=== PATIENT | female | born 1955 | race African-American/Black ===

== ENCOUNTER 2017-04-23 15:08 | Inpatient (IN) | payer MEDICAID ==
[~2017-04-23] VITALS: Ht 152.4 cm; Wt 61.2 kg
[~2017-04-23 15:08] MED LIST: ASPI-495 PO; CLOP75TA15 PO; ENOX40DI SQ; METO25TA20 PO
--- NOTE | 2017-04-23 15:45 | NUR ---
NEW IV STARTED ON RAC, 20 G. BLOOD DRAWN AND SENT TO LAB.
[2017-04-23 15:51] LABS: BASOPHILS # (AUTO) 0.1 /CMM (0.0-0.2); BASOPHILS % (AUTO) 1.5 % (0.0-2.0); HEMATOCRIT 38 % (33-45); HEMOGLOBIN 12.6 g/dL (11.5-14.8); LYMPHOCYTES # (AUTO) 1.3 /CMM (0.8-4.8); LYMPHOCYTES % (AUTO) 17.4 % (20.0-44.0); MEAN CORPUSCULAR HEMOGLOBIN 27 PG (26.0-33.0); MEAN CORPUSCULAR HGB CONC 33 g/dl (31.0-36.0); MEAN CORPUSCULAR VOLUME 80 fL (82-100); MONOCYTES # (AUTO) 0.4 /CMM (0.1-1.30); MONOCYTES % (AUTO) 5.5 % (2.0-12.0); NEUTROPHILS # (AUTO) 5.4 /CMM (1.8-8.9); NEUTROPHILS % (AUTO) 75.6 % (43.0-81.0); PLATELET COUNT (AUTO) 195 /CMM (150-450); RDW COEFFICIENT OF VARIATION 13.7 (11.5-15.0); RED BLOOD CELL COUNT(AUTO) 4.72 MIL/uL (4.0-5.2); WHITE BLOOD COUNT (AUTO) 7.3 K/uL (4.3-11.0)
--- NOTE | 2017-04-23 15:55 | NUR ---
PATIENT TAKEN TO CT VIA STRETCHER.
[2017-04-23] MEDS ORDERED: IV NS 0.9% 1,000 ML BAG IV ONE (16:00)
[2017-04-23 16:06] LABS: INR 0.93 (0.85-1.15)
[2017-04-23 16:08] LABS: ALANINE AMINOTRANSFERASE 40 U/L (12-78); ALBUMIN 3.5 g/dL (3.4-5.0); ALKALINE PHOSPHATASE 243 U/L (46-116); ASPARTATE AMINOTRANSFERASE 39 U/L (15-37); BILIRUBIN,DIRECT 0.1 mg/dL (0.0-0.2); BILIRUBIN,TOTAL 0.3 mg/dL (0.2-1.0); CALCIUM, SERUM 9.1 mg/dL (8.5-10.1); CARBON DIOXIDE 22 mmol/L (21-32); CHLORIDE 100 mmol/L (98-107); CREATININE 2.2 mg/dL (0.6-1.3); GLUCOSE 186 mg/dL (74-106); POTASSIUM 4.5 mmol/L (3.5-5.1); SODIUM SERUM 134 mmol/L (136-145); TOTAL PROTEIN, SERUM 8.4 g/dL (6.4-8.2); UREA NITROGEN, BLOOD 30 mg/dL (7-18)
[2017-04-23 16:10] LABS: TROPONIN I < 0.017 ng/mL (0.00-0.056)
--- NOTE | 2017-04-23 16:25 | NUR ---
PATIENT RETURNED FROM CT IN STABLE CONDITION.
[2017-04-23] MEDS ORDERED: HYDROMORPHONE INJ 0.5 MG/0.5 ML SYRINGE ONE (16:57)
[2017-04-23] MEDS ORDERED: HYDROMORPHONE 1 MG/1 ML DISP.SYRIN IV ONE (17:00)
[2017-04-23] MEDS ORDERED: HYDR-548 PO (17:04)
[2017-04-23] MEDS ORDERED: NAPR500T4 PO (17:04)
[2017-04-23] MEDS ORDERED: ESTR1.25 PO (17:04)
[2017-04-23] MEDS ORDERED: SIMV20TA6 PO (17:04)
[2017-04-23] MEDS ORDERED: LABE100T PO (17:04)
[2017-04-23] MEDS ORDERED: GLIM2TAB2 PO (17:04)
[2017-04-23] MEDS ORDERED: PIOG30TA10 PO (17:04)
[2017-04-23] MEDS ORDERED: METF500T4 PO (17:04)
[2017-04-23] MEDS ORDERED: HUM10VIA SQ (17:04)
[2017-04-23] MEDS ORDERED: PANT20TA3 PO (17:04)
[2017-04-23] MEDS ORDERED: CLOP75TA15 PO (17:08)
--- NOTE | 2017-04-23 17:59 | NUR ---
CALLED NURSING SUP. FOR TELE BED
--- NOTE | 2017-04-23 18:15 | NUR ---
TELE 109
[2017-04-23 18:20] LABS: APPEARANCE,URINE Clear (CLEAR); BILIRUBIN,URINE Negative (NEGATIVE); BLOOD, URINE Small Ery/uL (NEGATIVE); COLOR,URINE Yellow (YELLOW); KETONES,URINE Negative (NEGATIVE); LEUKOCYTE ESTERASE ,URINE Negative (NEGATIVE); NITRITE, URINE Negative (NEGATIVE); PROTEIN,URINE >=300 mg/dl (NEGATIVE); UGLUCOSE Negative (NEGATIVE)
--- NOTE | 2017-04-23 18:38 | NUR ---
REPORT GIVEN TO AMY CLARK FOR GUANAKO UPON ADMISSION.
--- NOTE | 2017-04-23 18:42 | NUR ---
REPORT GIVEN TO KULDEEP CLARK FOR GUANAKO
[2017-04-23] MEDS ORDERED: IV NS 0.9% 1,000 ML IV PRN (18:58)
[2017-04-23] MEDS ORDERED: MAGNESIUM HYDROXIDE 30 ML UDC PO PRN (19:00)
[2017-04-23] MEDS ORDERED: ONDANSETRON HCL/PF 4 MG/2 ML VIAL IVP PRN (19:00)
[2017-04-23] MEDS ORDERED: ACETAMINOPHEN 325 MG TABLET PO PRN (19:00)
[2017-04-23] MEDS ORDERED: MAG HYDROX/AL HYDROX/SIMETH 30 ML UDC PO PRN (19:00)
[2017-04-23] MEDS ORDERED: HYDROCODONE/APAP 5/325MG 1 EACH TABLET PO PRN (19:00)
[2017-04-23 19:13] LABS: BACTERIA,URINE Few /HPF (None Seen); SQUAMOUS EPITHELIAL CELL,UR Few /HPF (None Seen); WBC,URINE 0-2 /HPF (0-3)
[2017-04-23 19:14] LABS: FINE GRANULAR CASTS,URINE Few /LPF (None Seen); HYALINE CASTS, URINE Few /LPF (None Seen); MUCUS,URINE Few /LPF (None Seen)
[2017-04-23] MEDS ORDERED: DEXTROSE 50%-WATER 50 ML DISP.SYRIN IV PRN (19:30)
[2017-04-23 20:00] VITALS: BP 172/75
--- NOTE | 2017-04-23 20:00 | NUR ---
RN NOTES RECEIVED PATIENT IN BED WITH NO DISTRESS NOTED. ON ROOM AIR WITH BREATHING EVEN AND UNLABORED. COMPLAINT OF BACK AND RIGHT SHOULDER PAIN. ALERT AND ORIENTED WITH CONFUSION. SKIN ASSESSMENT DONE, NO SKIN ISSUES NOTED. NEEDS ATTENDED, KEPT CLEAN AND DRY.
[2017-04-23] MEDS: BLOOD SUGAR DIAGNOSTIC 1 EACH STRIP IN SCH (21:36)
[2017-04-23] MEDS: INSULIN REGULAR, HUMAN 100 UNIT/ML 3 ML VIAL SQ PRN (21:36)
[2017-04-23] MEDS: HYDROCODONE/APAP 10/325MG 1 EA TABLET PO PRN (21:38)
[2017-04-23] MEDS: ZOLPIDEM TARTRATE 5 MG TABLET PO PRN (22:11)
[2017-04-24] VITALS: BP_SYST 139; BP_DIAS 70; BP_DIAS 74
[2017-04-24 04:00] VITALS: BP 140/77
[2017-04-24 05:48] LABS: BASOPHILS % (AUTO) 0.3 % (0.0-2.0); HEMATOCRIT 34 % (33-45); HEMOGLOBIN 11.6 g/dL (11.5-14.8); LYMPHOCYTES # (AUTO) 2.1 /CMM (0.8-4.8); LYMPHOCYTES % (AUTO) 48.2 % (20.0-44.0); MEAN CORPUSCULAR HEMOGLOBIN 27 PG (26.0-33.0); MEAN CORPUSCULAR HGB CONC 34 g/dl (31.0-36.0); MEAN CORPUSCULAR VOLUME 80 fL (82-100); MONOCYTES # (AUTO) 0.3 /CMM (0.1-1.30); MONOCYTES % (AUTO) 7.6 % (2.0-12.0); NEUTROPHILS # (AUTO) 1.9 /CMM (1.8-8.9); NEUTROPHILS % (AUTO) 43.9 % (43.0-81.0); PLATELET COUNT (AUTO) 167 /CMM (150-450); RDW COEFFICIENT OF VARIATION 14.8 (11.5-15.0); RED BLOOD CELL COUNT(AUTO) 4.29 MIL/uL (4.0-5.2); WHITE BLOOD COUNT (AUTO) 4.3 K/uL (4.3-11.0)
[2017-04-24 06:07] LABS: CALCIUM, SERUM 8.2 mg/dL (8.5-10.1); MAGNESIUM 1.8 mg/dL (1.8-2.4); PHOSPHORUS 3.8 mg/dL (2.5-4.9)
[2017-04-24 06:13] LABS: THYROID STIMULATING HORMONE 0.893 uIU/mL (0.358-3.74)
--- NOTE | 2017-04-24 07:30 | NUR ---
FIRST AID TRAINER OPENING NOTES RECEIVED PATIENT IN STABLE CONDITION. PATIENT IS RESTING IN BED. IN NO APPARENT DISTRESS. BEDSIDE RAILS ARE UPX2. BED IS LOCKED AND LOWERED. CALL LIGHT IS WITHIN REACH. WILL CONTINUE TO MONITOR.
[2017-04-24] MEDS: BLOOD SUGAR DIAGNOSTIC 1 EACH STRIP IN SCH ×4 (07:48→21:30)
[2017-04-24] MEDS: PANTOPRAZOLE 40 MG TABLET.DR PO SCH (07:49)
[2017-04-24 08:00] VITALS: BP 168/81
[2017-04-24] MEDS: CLOPIDOGREL BISULFATE 75 MG TABLET PO SCH (08:32)
[2017-04-24] MEDS: LABETALOL HCL (100MG) 100 MG TABLET PO SCH ×2 (08:33→17:02)
[2017-04-24] MEDS: ASPIRIN EC 81 MG TABLET.DR PO SCH (08:33)
[2017-04-24] MEDS: ESTROGENS,CONJUGATED 0.625 MG TABLET PO SCH (08:34)
[2017-04-24 10:36] VITALS: BP_SYST 133; BP_SYST 146; BP_SYST 162; BP_DIAS 74; BP_DIAS 81; BP_DIAS 95
[2017-04-24] MEDS: INSULIN REGULAR, HUMAN 100 UNIT/ML 3 ML VIAL SQ PRN ×3 (12:30→21:31)
[2017-04-24] MEDS: HYDROCODONE/APAP 10/325MG 1 EA TABLET PO PRN ×2 (13:35→18:01)
[2017-04-24 14:34] LABS: CREATININE, URINE 162.1 MG/DL (30.0-125.0); URINE TOTAL PROTEIN 156.5 mg/dL (0-11.9)
[2017-04-24 14:45] LABS: APPEARANCE,URINE CLEAR (CLEAR); BILIRUBIN,URINE NEGATIVE (NEGATIVE); BLOOD, URINE NEGATIVE Ery/uL (NEGATIVE); COLOR,URINE YELLOW (YELLOW); KETONES,URINE NEGATIVE (NEGATIVE); LEUKOCYTE ESTERASE ,URINE TRACE (NEGATIVE); NITRITE, URINE NEGATIVE (NEGATIVE); PH,URINE 5.5 (5.0-8.0); PROTEIN,URINE 2+ mg/dl (NEGATIVE); UGLUCOSE NEGATIVE (NEGATIVE); UROBILINOGEN,URINE 0.2 EU/dL (0.2)
[2017-04-24 14:58] LABS: BACTERIA,URINE Few /HPF (None Seen); SQUAMOUS EPITHELIAL CELL,UR Moderate /HPF (None Seen)
[2017-04-24 15:06] LABS: EOSINOPHIL,URINE Rare
[2017-04-24] MEDS: GUAIFENESIN/CODEINE 10 ML UDC PO PRN (15:42)
[2017-04-24 16:00] VITALS: BP 125/69
[2017-04-24] MEDS: SIMVASTATIN 20 MG TABLET PO SCH (17:01)
--- NOTE | 2017-04-24 18:32 | NUR ---
MS RN CLOSING NOTES PATIENT IS RESTING IN BED. IN NO APPARENT DISTRESS. ALL NEEDS WERE MET. CALL LIGHT IS WITHIN REACH. BEDSIDE RAILS ARE UP X2. BED IS LOCKED AND LOWERED. IV LINE IS INTACT AND PATENT. WILL ENDORSE CARE TO QUALITATIVE FIELD COORDINATOR NURSE FOR GUANAKO.
--- NOTE | 2017-04-24 20:00 | NUR ---
RN NOTES RECEIVED PATIENT AWAKE IN BED WITH NO DISTRESS NOTED. BREATHING EVEN AND UNLABORED. NO COMPLAINT OF PAIN OR DISCOMFORT. ALERT AND ORIENTED WITH EPISODES OF CONFUSION. ON ROOM AIR TOLERATING WELL. NEEDS ATTENDED. CALL LIGHT PLACED WITHIN EASY REACH. KEPT CLEAN AND DRY.
[2017-04-24] MEDS: IV NS 0.9% 1,000 ML IV PRN (21:28)
[2017-04-25] MEDS: GUAIFENESIN/CODEINE 10 ML UDC PO PRN ×2 (03:26→10:40)
[2017-04-25 04:00] VITALS: BP 150/72
--- NOTE | 2017-04-25 06:21 | NUR ---
RN CLOSING NOTES PATIENT IN BED RESTING COMFORTABLY WITN NO DISTRESS, BREATHING EVEN AND UNLABORED. NOTED WITH COUGH, ROBITUSSIN GIVEN. NO COMPLAINT OF ANY PAIN. NO SIGNIFICANT CHANGE OF CONDITION. KEPT CLEAN AND DRY. WILL ENDORSE TO AM SHIFT FOR CONTINUITY OF CARE.
[2017-04-25 06:35] LABS: ALBUMIN 2.8 g/dL (3.4-5.0); BILIRUBIN,TOTAL 0.2 mg/dL (0.2-1.0); CALCIUM, SERUM 8.2 mg/dL (8.5-10.1); CREATININE 1.9 mg/dL (0.6-1.3); MAGNESIUM 1.6 mg/dL (1.8-2.4); PHOSPHORUS 3.5 mg/dL (2.5-4.9); POTASSIUM 4.3 mmol/L (3.5-5.1)
[2017-04-25 06:39] LABS: BASOPHILS % (AUTO) 0.6 % (0.0-2.0); EOSINOPHILS % (AUTO) 0.4 % (0.0-6.0); HEMATOCRIT 33 % (33-45); HEMOGLOBIN 10.8 g/dL (11.5-14.8); LYMPHOCYTES # (AUTO) 2.9 /CMM (0.8-4.8); LYMPHOCYTES % (AUTO) 59.3 % (20.0-44.0); MEAN CORPUSCULAR HEMOGLOBIN 27 PG (26.0-33.0); MEAN CORPUSCULAR HGB CONC 33 g/dl (31.0-36.0); MEAN CORPUSCULAR VOLUME 81 fL (82-100); MONOCYTES # (AUTO) 0.4 /CMM (0.1-1.30); NEUTROPHILS # (AUTO) 1.5 /CMM (1.8-8.9); NEUTROPHILS % (AUTO) 30.7 % (43.0-81.0); PLATELET COUNT (AUTO) 150 /CMM (150-450); RDW COEFFICIENT OF VARIATION 14.9 (11.5-15.0); RED BLOOD CELL COUNT(AUTO) 4.03 MIL/uL (4.0-5.2); WHITE BLOOD COUNT (AUTO) 4.8 K/uL (4.3-11.0)
[2017-04-25] MEDS: BLOOD SUGAR DIAGNOSTIC 1 EACH STRIP IN SCH ×4 (06:47→21:14)
[2017-04-25] MEDS: INSULIN REGULAR, HUMAN 100 UNIT/ML 3 ML VIAL SQ PRN ×3 (06:47→21:16)
--- NOTE | 2017-04-25 07:37 | NUR ---
MS/RN NOTES RECEIVED PATIENT RESTING IN BED COMFORTABLY IN NO APPARENT DISTRESS, BREATHING EVEN AND UNLABORED, ON ROOM AIR SAT ABOVE 91%. DENIES PAIN OR DISCOMFORT AT THIS TIME. ALERT AND ORIENTED X2-3 WITH PERIODS OF CONFUSION AND FORGETFULNESS. RISK FOR FALL, SAFETY PRECAUTIONS RENDERED, BED ALARM ON. IV TO RIGHT AC G20 NS AT 50CC/HR. WILL CONTINUE TO MONITOR PATIENT ACCORDINGLY.
[2017-04-25 08:00] VITALS: BP 101/70
[2017-04-25 08:06] VITALS: BP 109/70
[2017-04-25] MEDS ORDERED: Magnesium 1GM/D5W 100ML PREMIX 100 ML IV SCH (08:30)
[2017-04-25] MEDS: ASPIRIN EC 81 MG TABLET.DR PO SCH (08:39)
[2017-04-25] MEDS: CLOPIDOGREL BISULFATE 75 MG TABLET PO SCH (08:39)
[2017-04-25] MEDS: PANTOPRAZOLE 40 MG TABLET.DR PO SCH (08:39)
[2017-04-25] MEDS: HYDROCODONE/APAP 10/325MG 1 EA TABLET PO PRN (08:41)
[2017-04-25] MEDS: LABETALOL HCL (100MG) 100 MG TABLET PO SCH ×3 (08:43→17:25)
--- NOTE | 2017-04-25 08:50 | NUR ---
MS/RN NOTES PATIENT COMPLAINING OF 8/10 BACK AND CHEST PAIN. ADMINISTERED NORCO 10-325MG 1 TAB BY MOUTH ORDERED. WILL MONITOR PATIENT FOR EFFECTIVENESS AND RELIEF.
[2017-04-25] MEDS: ESTROGENS,CONJUGATED 0.625 MG TABLET PO SCH (09:35)
--- NOTE | 2017-04-25 11:30 | NUR ---
MS/RN NOTES PATIENT SEEN BY PT FOR EVALUATION AND TREATMENT.
[2017-04-25 16:00] VITALS: BP 110/75
[2017-04-25] MEDS: SIMVASTATIN 20 MG TABLET PO SCH (17:25)
--- NOTE | 2017-04-25 18:27 | NUR ---
MS/RN NOTES PATIENT RESTING IN BED COMFORTABLY, NO S/S OF DISTRESS, DISCOMFORT NOTED. ALL DUE MEDICATIONS GIVEN, ALL NEEDS MET AND ATTENDED, ALL DUE MEDICATIONS GIVEN, PATIENT KEPT CLEAN AND COMFORTABLE. GENTLE IV FLUIDS INFUSING TO RIGHT FA 22G INTACT AND PATENT. SAFETY MEASURES RENDERED, DISCUSSED PLAN OF CARE/TREATMENT. PATIENT REMAINED STABLE THROUGHOUT THE SHIFT, VITAL SIGNS WITHIN NORMAL LIMITS. WILL ENDORSE CARE TO ACCOUNTING TUTOR NURSE FOR GUANAKO
--- NOTE | 2017-04-25 19:05 | NUR ---
MS RN OPENING NOTES: RECEIVED PT IN BED AND IS ASLEEP AT THIS TIME. PT EASILY AROUSABLE TO NAME AND TOUCH. PT IS A/OX2-3. PT HAS R AC #20G AND IS PATENT AND INTACT. PT ALSO HAS R FOREARM #22G AND IS ALSO PATENT AND INTACT. PT BEING INFUSED WITH NS AT 50CC/HR. CALL LIGHT WITHIN PT'S REACH. BED KEPT IN LOW, LOCKED POSITION, AND SIDE RAILS X 2UP . BED ALARM ACTIVATED. WILL CONTINUE TO MONITOR PT.
[2017-04-25 20:00] VITALS: BP 133/75
--- NOTE | 2017-04-25 21:16 | NUR ---
MS RN NOTES: BLOOD SUGAR WAS 127. NO INSULIN WAS ADMINISTERED. WILL CONTINUE TO MONITOR PT.
[2017-04-26] VITALS (7 sets, daily range): BP systolic 95–158; BP diastolic 55–86
[2017-04-26] MEDS: IV NS 0.9% 1,000 ML IV PRN ×2 (02:49→21:29)
--- NOTE | 2017-04-26 04:10 | NUR ---
MS CLARK OPENING NOTES: RECEIVED PT IN BED AND IS ASLEEP AT THIS TIME. PT EASILY AROUSABLE TO NAME AND TOUCH. PT IS A/OX2-3. PT HAS R AC #20G AND IS PATENT AND INTACT. PT ALSO HAS R FOREARM #22G AND IS ALSO PATENT AND INTACT. PT BEING INFUSED WITH NS AT 50CC/HR. CALL LIGHT WITHIN PT'S REACH. BED KEPT IN LOW, LOCKED POSITION, AND SIDE RAILS X 2UP . BED ALARM ACTIVATED. WILL CONTINUE TO MONITOR PT. Addendum: 04/26/17 at 0412 by KACIE CHÁVEZ RN IGNORE THIS MESSAGE
--- NOTE | 2017-04-26 06:32 | NUR ---
MS RN CLOSING NOTES: ALL NEEDS WERE ATTENDED AND ANTICIPATED FOR. PT ASLEEP AT THIS TIME IN BED. PT EASILY AROUSABLE TO NAME AND TOUCH. PT IS A/OX2-3. PT HAS R AC #20G AND IS PATENT AND INTACT. PT ALSO HAS R FOREARM #22G AND IS ALSO PATENT AND INTACT. PT BEING INFUSED WITH NS AT 50CC/HR. CALL LIGHT WITHIN PT'S REACH. BED KEPT IN LOW, LOCKED POSITION, AND SIDE RAILS X 2UP . BED ALARM ACTIVATED. WILL ENDORSE TO AM NURSE FOR GUANAKO.
--- NOTE | 2017-04-26 07:30 | NUR ---
RECEIVED IN BED, ASLEEP. NO DISTRESS NOTED. WILL CONTINUE TO MONITOR.
[2017-04-26] MEDS: BLOOD SUGAR DIAGNOSTIC 1 EACH STRIP IN SCH ×4 (08:01→21:26)
[2017-04-26] MEDS: INSULIN REGULAR, HUMAN 100 UNIT/ML 3 ML VIAL SQ PRN ×3 (08:03→17:45)
[2017-04-26] MEDS: PANTOPRAZOLE 40 MG TABLET.DR PO SCH (08:03)
[2017-04-26] MEDS: CLOPIDOGREL BISULFATE 75 MG TABLET PO SCH (08:03)
[2017-04-26] MEDS: ESTROGENS,CONJUGATED 0.625 MG TABLET PO SCH (08:04)
[2017-04-26] MEDS: LABETALOL HCL (100MG) 100 MG TABLET PO SCH (08:04)
[2017-04-26] MEDS: ASPIRIN EC 81 MG TABLET.DR PO SCH (08:04)
--- NOTE | 2017-04-26 12:30 | NUR ---
TOLERATING CHOPPED MECHANICAL SOFT DIET. ORTHOSTATIC BP DONE. PT C/O BEING LIGHT HEADED WHEN CHANGING POSITION. WILL CONT TO MONITOR.
[2017-04-26] MEDS ORDERED: hydrALAZINE HCL 25 MG TABLET PO PRN (15:00)
[2017-04-26] MEDS: SIMVASTATIN 20 MG TABLET PO SCH (17:45)
--- NOTE | 2017-04-26 19:42 | NUR ---
NO DISTRESS NOTED. FAMILY AT BEDSIDE. BLOOD SUGARS MONITORED. INCONTINENCE CARE DONE. BED LOW AND LOCKED. CALL LIGHT WITHIN REACHED. WILL CONT TO MONITOR.
--- NOTE | 2017-04-26 19:45 | NUR ---
MS RN INITIAL NOTES PT IS IN BED AWAKE AND ALERT. FAMILY AT BEDSIDE. FAMILY BROUGHT PT HERNÁN HARDY AND PT IS TOLERATING WELL. BREATHING EVENLY AND UNLABORED ON RA. NO SIGNS OF SOB OR DISTRESS. BED IS IN LOW AND LOCKED POSITION, CALL LIGHT WITHIN REACH. WILL CONTINUE TO MONITOR PT.
[2017-04-27] MEDS ORDERED: CLONIDINE HCL 0.1 MG TABLET PO ONE (02:00)
[2017-04-27] MEDS: ZOLPIDEM TARTRATE 5 MG TABLET PO PRN (02:19)
[2017-04-27 04:00] VITALS: BP_SYST 152; BP_SYST 165; BP_SYST 171; BP_DIAS 81; BP_DIAS 82
[2017-04-27] MEDS: BLOOD SUGAR DIAGNOSTIC 1 EACH STRIP IN SCH ×3 (05:49→17:23)
--- NOTE | 2017-04-27 06:49 | NUR ---
MS RN CLOSING NOTES PT IS IN BED RESTING. BREATHING EVENLY AND UNLABORED ON RA. NO SIGNS OF SOB OR DISTRESS. IV FLUIDS HELD DUE TO INCREASED BP, ORTHOSTATIC BP WAS TAKEN AND RECORDED. BED IS IN LOW AND LOCKED POSITION, CALL LIGHT WITHIN REACH. WILL ENDORSE TO DAYSHIFT
[2017-04-27 06:56] LABS: BASOPHILS % (AUTO) 0.6 % (0.0-2.0); EOSINOPHILS % (AUTO) 0.6 % (0.0-6.0); HEMATOCRIT 31 % (33-45); HEMOGLOBIN 10.4 g/dL (11.5-14.8); LYMPHOCYTES % (AUTO) 65.9 % (20.0-44.0); MEAN CORPUSCULAR HEMOGLOBIN 27 PG (26.0-33.0); MEAN CORPUSCULAR HGB CONC 34 g/dl (31.0-36.0); MEAN CORPUSCULAR VOLUME 81 fL (82-100); MONOCYTES # (AUTO) 0.5 /CMM (0.1-1.30); MONOCYTES % (AUTO) 8.1 % (2.0-12.0); NEUTROPHILS # (AUTO) 1.5 /CMM (1.8-8.9); NEUTROPHILS % (AUTO) 24.8 % (43.0-81.0); PLATELET COUNT (AUTO) 143 /CMM (150-450); RED BLOOD CELL COUNT(AUTO) 3.86 MIL/uL (4.0-5.2)
[2017-04-27 07:10] LABS: CALCIUM, SERUM 7.9 mg/dL (8.5-10.1); CREATININE 1.3 mg/dL (0.6-1.3); MAGNESIUM 1.7 mg/dL (1.8-2.4); PHOSPHORUS 2.9 mg/dL (2.5-4.9)
[2017-04-27 08:00] VITALS: BP 151/71
[2017-04-27] MEDS ORDERED: AMLODIPINE BESYLATE 10 MG TABLET PO SCH (09:00)
[2017-04-27] MEDS: ESTROGENS,CONJUGATED 0.625 MG TABLET PO SCH (09:19)
[2017-04-27] MEDS: ASPIRIN EC 81 MG TABLET.DR PO SCH (09:19)
[2017-04-27] MEDS: CLOPIDOGREL BISULFATE 75 MG TABLET PO SCH (09:19)
[2017-04-27] MEDS: PANTOPRAZOLE 40 MG TABLET.DR PO SCH (09:19)
[2017-04-27] MEDS: Magnesium 1GM/D5W 100ML PREMIX 100 ML IV SCH ×2 (12:10→13:30)
[2017-04-27] MEDS ORDERED: AMLO10TA2 PO (15:33)
[2017-04-27 16:00] VITALS: BP 131/77
--- NOTE | 2017-04-27 17:50 | NUR ---
MG IV REPLACEMENT DONE.O2 SAT RM. AIR 95%.DC INSTRUCTIONS GIVEN TO FAMILY ALONG WITH RX.HEP LOCKS OUT. ESCORTED TO LOBBY BY SPORTS TRAINER AND FAMILY.
[2017-04-27] MEDS: SIMVASTATIN 20 MG TABLET PO SCH (18:00)
[2017-04-27] MEDS: INSULIN REGULAR, HUMAN 100 UNIT/ML 3 ML VIAL SQ PRN (18:21)
== END 2017-04-27 18:50 | disposition home health service (06) | DRG 48 ==
LOC: ER 15:11 → TELE1 18:32 → MEDSG1 04-24 10:24
PROVIDERS: ADMIT Nurse Practitioner Acute Care; ATTEND Nurse Practitioner Acute Care
DX: G90.8 Other disorders of autonomic nervous system (principal); N17.0 Acute kidney failure with tubular necrosis; E11.21 Type 2 diabetes mellitus with diabetic nephropathy; M32.9 Systemic lupus erythematosus, unspecified; E11.22 Type 2 diabetes mellitus with diabetic chronic kidney disease; I25.10 Atherosclerotic heart disease of native coronary artery without angina pectoris; E11.9 Type 2 diabetes mellitus without complications; E78.5 Hyperlipidemia, unspecified; I70.0 Atherosclerosis of aorta; Z86.73 Personal history of transient ischemic attack (TIA), and cerebral infarction without residual deficits; Z79.82 Long term (current) use of aspirin; Z79.4 Long term (current) use of insulin; W18.2XXA Fall in (into) shower or empty bathtub, initial encounter; J44.9 Chronic obstructive pulmonary disease, unspecified; Y92.002 Bathroom of unspecified non-institutional (private) residence as the place of occurrence of the external cause; G89.4 Chronic pain syndrome; Z79.899 Other long term (current) drug therapy; Z79.84 Long term (current) use of oral hypoglycemic drugs; I12.9 Hypertensive chronic kidney disease with stage 1 through stage 4 chronic kidney disease, or unspecified chronic kidney disease; N18.9 Chronic kidney disease, unspecified; S13.9XXA Sprain of joints and ligaments of unspecified parts of neck, initial encounter; S13.4XXA Sprain of ligaments of cervical spine, initial encounter; Z72.0 Tobacco use; M19.011 Primary osteoarthritis, right shoulder; M40.204 Unspecified kyphosis, thoracic region; M47.814 Spondylosis without myelopathy or radiculopathy, thoracic region; M77.9 Enthesopathy, unspecified
CPT/HCPCS: 36415; 70450-TC; 71045-TC; 72125-TC; 72128-TC; 72170-TC; 73030-TC; 76770-TC; 80048-TC; 80053-TC; 80061-TC; 80076-TC; 80305; 81000-TC; 82570-TC; 82746; 82962-TC; 83540-TC; 83735-TC; 84100-TC; 84155-TC; 84300-TC; 84443-TC; 84484-TC; 85025-TC; 85730-TC; 87081-TC; 87086-TC; 92521; 93307-TC; 97116-TC; 97530-TC; A4606; G0480; J1815; J3475; J7030; Z7610

== ENCOUNTER 2017-08-30 12:02 | Emergency (ER) | payer MEDICAID ==
[~2017-08-30] VITALS: Ht 152.4 cm; Wt 66.7 kg
[~2017-08-30 12:02] MED LIST changes: +AMLO10TA6 PO; -ENOX40DI SQ; +ESTR1.25 PO; +GLIM2TAB2 PO; +HUM10VIA SQ; +HYDR-548 PO; +METF-440 PO; -METO25TA20 PO; +PANT20TA3 PO; +PIOG30TA10 PO; +SIMV20TA6 PO
[2017-08-30] MEDS ORDERED: IBUPROFEN 600 MG TABLET PO ONE ×2 (13:00)
--- NOTE | 2017-08-30 13:24 | NUR ---
Patient discharged to home in stable condition. Written and verbal after care instructions given. Patient verbalizes understanding of instruction.
[2017-08-30 13:28] VITALS: BP 148/80
== END 2017-08-30 13:30 | disposition home or self-care (01) ==
LOC: ER 12:03
DX: L84 Corns and callosities (principal); J44.9 Chronic obstructive pulmonary disease, unspecified; G89.29 Other chronic pain; I25.10 Atherosclerotic heart disease of native coronary artery without angina pectoris; E11.9 Type 2 diabetes mellitus without complications; I10 Essential (primary) hypertension; F17.210 Nicotine dependence, cigarettes, uncomplicated; F10.10 Alcohol abuse, uncomplicated; Z86.73 Personal history of transient ischemic attack (TIA), and cerebral infarction without residual deficits; Z79.82 Long term (current) use of aspirin; Z79.4 Long term (current) use of insulin
CPT/HCPCS: 73630-TC; A4606; Z7610

== ENCOUNTER 2017-09-04 13:54 | Inpatient (IN) | payer MEDICAID, OTHER ==
[~2017-09-04] VITALS: Ht 165.1 cm; Wt 63.5 kg
--- NOTE | 2017-09-04 14:00 | NUR ---
BB FAMILY: NAUSEA, VOMITING, WEAKNESS, DEHYDRATION
[2017-09-04] MEDS ORDERED: IV NS 0.9% 1,000 ML BAG IV ONE (15:00)
[2017-09-04] MEDS ORDERED: MORPHINE SULFATE INJ 2 MG/ML DISP.SYRIN IV ONE ×2 (15:00→17:30)
[2017-09-04] MEDS ORDERED: ONDANSETRON HCL/PF 4 MG/2 ML VIAL IVP ONE (15:00)
[2017-09-04] MEDS ORDERED: ONDANSETRON HCL/PF 4 MG/2 ML VIAL ONE (15:06)
[2017-09-04] MEDS ORDERED: MORPHINE SULFATE INJ 4 MG/ML DISP.SYRIN ONE ×2 (15:06→17:29)
[2017-09-04 15:21] LABS: HEMATOCRIT 39 % (33-45); HEMOGLOBIN 12.5 g/dL (11.5-14.8); LYMPHOCYTES % (AUTO) 6.5 % (20.0-44.0); MEAN CORPUSCULAR HGB CONC 32 g/dl (31.0-36.0); MEAN CORPUSCULAR VOLUME 82 fL (82-100); MONOCYTES # (AUTO) 0.3 /CMM (0.1-1.30); MONOCYTES % (AUTO) 1.8 % (2.0-12.0); NEUTROPHILS # (AUTO) 14.5 /CMM (1.8-8.9); NEUTROPHILS % (AUTO) 91.7 % (43.0-81.0); PLATELET COUNT (AUTO) 276 /CMM (150-450); RDW COEFFICIENT OF VARIATION 15.1 (11.5-15.0); RED BLOOD CELL COUNT(AUTO) 4.73 MIL/uL (4.0-5.2); WHITE BLOOD COUNT (AUTO) 15.9 K/uL (4.3-11.0)
[2017-09-04 15:32] LABS: CALCIUM, SERUM 9.4 mg/dL (8.5-10.1); CARBON DIOXIDE 29 mmol/L (21-32); CHLORIDE 102 mmol/L (98-107); CREATININE 2.2 mg/dL (0.6-1.3); GLUCOSE 222 mg/dL (74-106); POTASSIUM 4.5 mmol/L (3.5-5.1); SODIUM SERUM 141 mmol/L (136-145); UREA NITROGEN, BLOOD 41 mg/dL (7-18)
[2017-09-04 15:40] LABS: TROPONIN I < 0.017 ng/mL (0.00-0.056)
[2017-09-04 15:44] LABS: ALANINE AMINOTRANSFERASE 341 U/L (12-78); ALBUMIN 3.8 g/dL (3.4-5.0); ALKALINE PHOSPHATASE 307 U/L (46-116); ASPARTATE AMINOTRANSFERASE 393 U/L (15-37); BILIRUBIN,DIRECT 1.7 mg/dL (0.0-0.2); BILIRUBIN,TOTAL 2.4 mg/dL (0.2-1.0); LIPASE 262 U/L (73-393); TOTAL PROTEIN, SERUM 9.3 g/dL (6.4-8.2)
[2017-09-04 15:47] LABS: INR 0.93 (0.87-1.13)
--- NOTE | 2017-09-04 15:54 | NUR ---
UNABLE TO PROVIDE URINE SAMPLE IN AND OUT FOR NO URINE
[2017-09-04] MEDS ORDERED: IBUP-1955 PO (16:01)
[2017-09-04 16:20] LABS: APPEARANCE,URINE CLEAR (CLEAR); BILIRUBIN,URINE 1+ (NEGATIVE); BLOOD, URINE TRACE-INTA Ery/uL (NEGATIVE); COLOR,URINE YELLOW (YELLOW); KETONES,URINE NEGATIVE (NEGATIVE); LEUKOCYTE ESTERASE ,URINE NEGATIVE (NEGATIVE); NITRITE, URINE NEGATIVE (NEGATIVE); PH,URINE 7.5 (5.0-8.0); PROTEIN,URINE 2+ mg/dl (NEGATIVE); UGLUCOSE TRACE mg/dL (NEGATIVE)
--- NOTE | 2017-09-04 16:54 | NUR ---
CALLED NURSING HOUSE COORDINATOR AND REQUESTED A TELE BED FOR THIS PT.
--- NOTE | 2017-09-04 16:54 | NUR ---
CALLED [facility] FOR PANEL AND DR DAVIS WAS PAGED.
[2017-09-04 17:19] LABS: BACTERIA,URINE Rare /HPF (None Seen); SQUAMOUS EPITHELIAL CELL,UR 0-2 /HPF (None Seen); WBC,URINE 0-2 /HPF (0-3)
--- NOTE | 2017-09-04 17:25 | NUR ---
CALLED NURSING PLEAT PATTERNMAKER AND REQUESTED A MED SURG BED FOR THIS PT, PER DR CRAFT.
[2017-09-04] MEDS ORDERED: PIPERACILLIN /TAZOBACTAM 3.375 G in IV D5W 50 ML IV ONE (17:30)
--- NOTE | 2017-09-04 17:43 | NUR ---
ASSIGNED TO MED SURG RM#: [id number], DX: ABD PAIN/ RENAL INSUFF, ACCEPTING MD: DR DAVIS.
--- NOTE | 2017-09-04 17:50 | NUR ---
BLOOD CULTURES DRAWN AND SENT TO LAB
[2017-09-04 18:00] LABS: BAND % (MANUAL) 6 % (0.0-5.0); EOSINOPHILS % (MANUAL) 1 % (0-4); LYMPHOCYTES % (MANUAL) 11 % (16-48); MONOCYTES % (MANUAL) 4 % (0-11.0); NEUTROPHILS % (MANUAL) 78 (42-76)
[2017-09-04] MEDS ORDERED: PIPERACILLIN /TAZOBACTAM 3.375 G in IV D5W 100 ML IV SCH (18:00)
[2017-09-04] MEDS ORDERED: MAG HYDROX/AL HYDROX/SIMETH 30 ML UDC PO PRN (18:00)
[2017-09-04] MEDS ORDERED: ONDANSETRON HCL/PF 4 MG/2 ML VIAL IVP PRN (18:00)
[2017-09-04] MEDS ORDERED: SIMVASTATIN 20 MG TABLET PO SCH (18:00)
[2017-09-04] MEDS ORDERED: ACETAMINOPHEN 325 MG TABLET PO PRN (18:00)
[2017-09-04] MEDS ORDERED: HYDROCODONE/APAP 5/325MG 1 EACH TABLET PO PRN (18:00)
[2017-09-04] MEDS ORDERED: MORPHINE SULFATE INJ 2 MG/ML DISP.SYRIN IV PRN (18:00)
[2017-09-04] MEDS ORDERED: Z GUARD REMEDY 2 OZ OINT TP PRN (18:00)
[2017-09-04] MEDS ORDERED: ZOLPIDEM TARTRATE 5 MG TABLET PO PRN (18:00)
[2017-09-04] MEDS ORDERED: MAGNESIUM HYDROXIDE 30 ML UDC PO PRN (18:00)
--- NOTE | 2017-09-04 18:10 | NUR ---
Connor asldaña in [facility] - 09/04/17 at 1811 by CHIQUITA BLOOD CULTURES DRAWN AND SENT TO LAB
--- NOTE | 2017-09-04 18:21 | NUR ---
GAVE REPORT TO MUSTAPHA CLARK ABD PAIN ARF DR CRAFT ADMITTING MS
[2017-09-04 18:30] VITALS: BP 152/76
--- NOTE | 2017-09-04 18:40 | NUR ---
PER DR CRAFT, KEEP PATIENT NPO, AWAITING SURGERY RECOMMENDATION. VERBAL READBACK
--- NOTE | 2017-09-04 18:41 | NUR ---
PATIENT ARRIVED TO UNIT FROM ER. NONLABORED BREATHING NOTED ON 2 L NASAL CANNULA. NO FACIAL GRIMACING NOTED. PATIENT RESPONSIVE TO NAME AND TOUCH. PATIENT AO TO NAME AND SITUATION. PATIENT NOTED TO STATE NAME WITH CLEAR SPEECH. WHEN INSTRUCTED ABOUT BEING NPO, PATIENT NODDING HEAD. PATIENT NOTED WITH A TEMP OF 100.3. PATIENT CHANGED INTO A HOSPITAL GOWN AND ICE PACKS APPLIED. IV SITE ON LEFT AC 20 PATENT AND INTACT. BED IN LOWEST LOCKED POSITION CALL LIGHT WITHIN REACH. BED IN LOWEST LOCKED POSITION. CALL LIGHT WITHIN REACH.
[2017-09-04 18:50] VITALS: BP 149/77
[2017-09-04] MEDS: IV NS 0.9% 1,000 ML IV PRN (18:54)
--- NOTE | 2017-09-04 19:35 | NUR ---
REPORT GIVEN TO ELIZABETH ZAVALA FOR CONTINUATION OF CARE
[2017-09-04 20:00] VITALS: BP 152/76
--- NOTE | 2017-09-04 20:00 | NUR ---
MS/MEAT CARRIER; PT RECEIVED FROM THE DAY SHIFT RN AND SHE SAID PT CAME FROM ER AT 1830 AND NEED TO BE ADMITTED. AT THIS TIME PT IN BED SLEEPING. BREATHING NON LABORED. DX; POSS. CHOLECYSTITIS, RENAL FAILURE. BED ON LOWER POSITION AND LOCKED FOR SAFETY. SIDE RAILS X4 ARE UP FOR SAFETY. DAY SHIFT TEMP . 100.3.
--- NOTE | 2017-09-04 21:00 | NUR ---
MS/AGED OR DISABLED CARER; ZOSYN 2.25 GM IVPB NOT GIVEN AT THIS TIME BECAUSE IT WAS GIVEN IN ER AT 1731 AND I CHECKED WITH CHARGE NURSE JIMBO. SO SHE SAID GIVE IT AT TOMORROW AT 0100 AND I TOLD MY RN WHO COVERED ME.
--- NOTE | 2017-09-04 21:15 | NUR ---
MS/ACCOUNTING MANAGER; I PLACED A CALL TO CRUZ MISHRA NP AND I SPOKE TO HIM AND I TOLD HIM THAT I NEED AN ORDER OF TYLENOL SUPP DUE PT CAN'T SWALLOW TYLENOL PT SO HE ORDERED TYLENOL 650 MG NV Q6 PRN AND ORDER CARRIED OUT.
[2017-09-04] MEDS ORDERED: ACETAMINOPHEN 650 MG/SUPP.RECT RC PRN (21:30)
--- NOTE | 2017-09-04 22:30 | NUR ---
MS/GENERAL OFFICE CLERK; TEMP 101.1 ORALLY , TYLENOL 650 MG OH Q6 PRN GIVEN ORDERED.
[2017-09-04] MEDS: BLOOD SUGAR DIAGNOSTIC 1 EACH STRIP IN SCH (23:15)
--- NOTE | 2017-09-04 23:15 | NUR ---
MS/DIGITAL MEDIA STRATEGIST; BS 170 NO COVERAGE GIVEN PT IS ON NPO.
--- NOTE | 2017-09-05 | NUR ---
MS/FIREWORKS ASSEMBLY SUPERVISOR; RE CHECKED TEMP. 99.5 ORALLY.
[2017-09-05] MEDS: PIPERACILLIN /TAZOBACTAM 2.25 G in IV NS 0.9% 50 ML IV SCH ×3 (00:51→21:10)
--- NOTE | 2017-09-05 05:00 | NUR ---
MS/ASSISTANT PROFESSOR OF MARINE BIOLOGY; AT THIS TIME ZOSYN 2.25 GM IVPB NOT GIVEN BECAUSE IT WAS GIVEN AT 0100 TO MAKE IT Q8 HOURS.
[2017-09-05] MEDS: IV NS 0.9% 1,000 ML IV PRN ×2 (06:45→23:17)
--- NOTE | 2017-09-05 06:45 | NUR ---
MS/REHAB/PRE VOCATIONAL COUNSELOR; BS 103 NO COVERAGE. IVF ON PROGRESS. BREATHING NON LABORED. WILL ENDORSE TO THE DAY SHIFT.
[2017-09-05] MEDS: BLOOD SUGAR DIAGNOSTIC 1 EACH STRIP IN SCH ×4 (06:51→21:13)
--- NOTE | 2017-09-05 07:25 | NUR ---
MS RN NOTES PATIENT RECEIVED RESTING INSIDE ROOM. AWAKE, ALERT AND ORIENTED, VERBALLY RESPONSIVE AND RESPONDS TO VERBAL AND TACTILE STIMULI. BREATHING EVEN AND UNLABORED. NO SOB OR ACUTE DISTRESS NOTED. PATIENT DENIES ANY PAIN BUT VERBALIZES DISCOMFORT ON ABDOMEN WITH MOVEMENT. IV SITE INTACT AND PATENT, NO BLEEDING NOTED AT THIS TIME. PATIENT CALM AND RELAXED. CURRENTLY ON NPO STATUS, OK TO HAVE PO MEDICATIONS AND SIPS OF WATER. PATIENT AWARE AND VERBALIZED UNDERSTANDING. WILL CONTINUE TO MONITOR. BED LOCKED AND IN LOW POSITION. BILATERAL UPPER SIDE RAILS UP AND LOCKED. CALL LIGHT WITHIN EASY REACH
[2017-09-05 08:00] VITALS: BP 144/83
[2017-09-05] MEDS ORDERED: METFORMIN 500 MG TABLET PO SCH (09:00)
[2017-09-05] MEDS: ASPIRIN EC 81 MG TABLET.DR PO SCH (09:17)
[2017-09-05] MEDS: PIOGLITAZONE HCL 15 MG TABLET PO SCH (09:17)
[2017-09-05] MEDS: CLOPIDOGREL BISULFATE 75 MG TABLET PO SCH (09:17)
[2017-09-05] MEDS: AMLODIPINE BESYLATE 10 MG TABLET PO SCH (09:18)
--- NOTE | 2017-09-05 09:36 | NUR ---
MS RN NOTES RECEIVED CALL FROM DR. COLLINS WITH ORDERS FOR MRCP AND HIDA SCAN. ORDERS NOTED AND CARRIED OUT. PATIENT MADE AWARE AND VERBALIZED UNDERSTANDING. WILL CONTINUE TO MONITOR
--- NOTE | 2017-09-05 10:00 | NUR ---
MS RN NOTES PATIENT SEEN AND EXAMINED BY DR. COLLINS. INFORMED DR. COLLINS OF PATIENT NPO STATUS WITH MEDICATIONS AND SIPS OF WATER AND DR. COLLINS GAVE OK. VERIFIED INFORMED CONSENT OBTAINED AND WITNESSED FOR MRCP AND HIDA SCAN. WILL CONTINUE TO MONITOR
--- NOTE | 2017-09-05 10:06 | NUR ---
OSCARP APPROVED BY DR. VALENZUELA
--- NOTE | 2017-09-05 11:30 | NUR ---
MS RN NOTES PATIENT LEFT UNIT FOR HIDA SCAN. LEFT VIA WHEELCHAIR IN STABLE CONDITION. BREATHING EVEN AND UNLABORED. NO SOB OR ACUTE DISTRESS NOTED.
--- NOTE | 2017-09-05 14:05 | NUR ---
MS RN NOTES PATIENT CAME BACK FROM MRCP AND HIDA SCAN. PATIENT BREATHING EVEN AND UNLABORED. NO SOB OR ACUTE DISTRESS. WILL CONTINUE TO MONITOR
--- NOTE | 2017-09-05 14:15 | NUR ---
NM HIDA SCAN WAS COMPLETED;TECH:RB.
[2017-09-05 15:55] VITALS: BP 154/74
[2017-09-05] MEDS ORDERED: ACETAMINOPHEN 325 MG TABLET PO PRN (16:00)
--- NOTE | 2017-09-05 18:34 | NUR ---
MS RN NOTES PATIENT RESTING INSIDE ROOM,AWAKE, ALERT AND ORIENTED. VERBALLY RESPONSIVE AND RESPONDS TO VERBAL AND TACTILE STIMULI. BREATHING EVEN AND UNLABORED. NO SOB OR ACUTE DISTRESS NOTED. DENIES ANY PAIN OR DISCOMFORT. NO CHANGES IN LOC NOTED. PATIENT AFEBRILE, SKIN DRY AND WARM TO TOUCH. PATIENT CALM AND RELAXED. CONTINUE WITH NPO STATUS EXCEPT MEDICATIONS. PATIENT VERBALIZED UNDERSTANDING WITH NPO STATUS. IV SITE INTACT AND PATENT, NO SWELLING OR BLEEDING NOTED ON SITE. ONGOING NS AT 100CCHR. WILL ENDORSE TO INCOMING SHIFT FOR GUANAKO. PATIENT KEPT CLEAN, DRY AND COMFORTABLE. PROVIDED WITH CALM, SAFE, HAZARD-FREE ENVIRONMENT. DUE MEDICATIONS GIVEN AND TOLERATED WELL. CALL LIGHT WITHIN EASY REACH
--- NOTE | 2017-09-05 19:35 | NUR ---
MS RN INITIAL NOTE PT IS IN BED SLEEPING, EASILY AROUSED. ABLE TO MAKE NEEDS KNOWN. NO SIGNS OF SOB OR DISTRESS, BREATHING EVENLY AND UNLABORED ON RA. PT IS NPO EXCEPT MEDS. IV ACCESS IS INTACT AND PATENT WITH FLUIDS INFUSING. BED IS IN LOW AND LOCKED POSITION, CALL LIGHT WITHIN REACH. WILL CONTINUE TO MONITOR PT
[2017-09-05 20:00] VITALS: BP 139/62
--- NOTE | 2017-09-05 20:00 | NUR ---
MS RN NOTE PT HAS A FEVER OF 99.6, BLANKETS WERE REMOVED. ROOM TEMP WAS LOWERED. COOLING MEASURES INITIATED. WILL CONTINUE TO MONITOR
--- NOTE | 2017-09-05 21:00 | NUR ---
ms rn note temp is now 98.6
--- NOTE | 2017-09-05 21:16 | NUR ---
MS RN NOTE SPOKE WITH NEVAEH ARROYO IN REGARDS TO PTS PRELIMINARY RESULTS FOR BLOOD CULTURE THAT SHOWS GRAM (+) COCCI, CRUZ SAID NO ORDERS AT THIS TIME, AWAIT FINE RESULTS
[2017-09-05 22:39] LABS: EOSINOPHILS % (AUTO) 0.1 % (0.0-6.0); HEMATOCRIT 33 % (33-45); HEMOGLOBIN 10.7 g/dL (11.5-14.8); LYMPHOCYTES # (AUTO) 0.7 /CMM (0.8-4.8); LYMPHOCYTES % (AUTO) 6.9 % (20.0-44.0); MEAN CORPUSCULAR HGB CONC 33 g/dl (31.0-36.0); MEAN CORPUSCULAR VOLUME 82 fL (82-100); MONOCYTES # (AUTO) 0.3 /CMM (0.1-1.30); MONOCYTES % (AUTO) 2.8 % (2.0-12.0); NEUTROPHILS # (AUTO) 9.8 /CMM (1.8-8.9); NEUTROPHILS % (AUTO) 90.2 % (43.0-81.0); PLATELET COUNT (AUTO) 173 /CMM (150-450); RDW COEFFICIENT OF VARIATION 15.3 (11.5-15.0); RED BLOOD CELL COUNT(AUTO) 3.96 MIL/uL (4.0-5.2); WHITE BLOOD COUNT (AUTO) 10.9 K/uL (4.3-11.0)
[2017-09-05 22:59] LABS: CALCIUM, SERUM 8.3 mg/dL (8.5-10.1); CREATININE 2.2 mg/dL (0.6-1.3); MAGNESIUM 1.4 mg/dL (1.8-2.4); POTASSIUM 3.7 mmol/L (3.5-5.1)
[2017-09-05 23:08] LABS: THYROID STIMULATING HORMONE 0.122 uIU/mL (0.358-3.74)
[2017-09-06] MEDS: HYDROCODONE/APAP 10/325MG 1 EA TABLET PO PRN ×2 (02:35→10:48)
--- NOTE | 2017-09-06 03:54 | NUR ---
MS RN NOTE CALLED NEVAEH ARROYO, PT COMPLAINTS OF NEW RIGHT LOWER LEG PAIN WITH DISCOLORATION ON RT FOOT NOTED. TENDERNESS ON LOWER LEG ON PALPATION, WARM TO TOUCH, ABLE TO WIGGLE TOES. NEVAEH ARROYO ORDERED ONE TIME 2MG MORPHINE AND A ROUTINE ARTERIAL STUDY. WILL CONTINUE TO MONITOR PT
[2017-09-06] MEDS ORDERED: MORPHINE SULFATE INJ 4 MG/ML DISP.SYRIN IV PRN (04:30)
[2017-09-06] MEDS: PIPERACILLIN /TAZOBACTAM 2.25 G in IV NS 0.9% 50 ML IV SCH ×2 (05:23→12:02)
[2017-09-06] MEDS ORDERED: MORPHINE SULFATE INJ 2 MG/ML DISP.SYRIN IV ONE (06:00)
[2017-09-06] MEDS: BLOOD SUGAR DIAGNOSTIC 1 EACH STRIP IN SCH ×3 (06:21→16:35)
--- NOTE | 2017-09-06 06:24 | NUR ---
MS RN NOTE ARTERIAL ULTRASOUND COMPLETED
--- NOTE | 2017-09-06 06:26 | NUR ---
MS RN CLOSING NOTE PT IS IN BED AWAKE AND ALERT. PAIN IMPROVED WITH MORPHINE BUT NOT COMPLETELY ALLEVIATED. NO SIGNS OF SOB OR DISTRESS, BREATHING EVENLY AND UNLABORED. ALL NEEDS WERE ANTICIPATED AND MET. BED IS IN LOW AND LOCKED POSITION, CALL LIGHT WITHIN REACH. WILL ENDORSE TO DAYSHIFT.
--- NOTE | 2017-09-06 06:52 | NUR ---
ms rn note reported results of arterial study to elise benavides. no further orders at this time. will endorse
[2017-09-06 07:03] LABS: BASOPHILS % (AUTO) 0.1 % (0.0-2.0); EOSINOPHILS % (AUTO) 0.5 % (0.0-6.0); HEMATOCRIT 33 % (33-45); HEMOGLOBIN 10.8 g/dL (11.5-14.8); LYMPHOCYTES % (AUTO) 9.5 % (20.0-44.0); MEAN CORPUSCULAR HGB CONC 33 g/dl (31.0-36.0); MEAN CORPUSCULAR VOLUME 83 fL (82-100); MONOCYTES # (AUTO) 0.5 /CMM (0.1-1.30); MONOCYTES % (AUTO) 4.4 % (2.0-12.0); NEUTROPHILS # (AUTO) 9.3 /CMM (1.8-8.9); NEUTROPHILS % (AUTO) 85.5 % (43.0-81.0); PLATELET COUNT (AUTO) 167 /CMM (150-450); RDW COEFFICIENT OF VARIATION 15.4 (11.5-15.0); RED BLOOD CELL COUNT(AUTO) 3.92 MIL/uL (4.0-5.2); WHITE BLOOD COUNT (AUTO) 10.9 K/uL (4.3-11.0)
[2017-09-06 07:07] LABS: ALBUMIN 2.6 g/dL (3.4-5.0); BILIRUBIN,TOTAL 4.9 mg/dL (0.2-1.0); CALCIUM, SERUM 8.6 mg/dL (8.5-10.1); CREATININE 2.2 mg/dL (0.6-1.3); MAGNESIUM 1.5 mg/dL (1.8-2.4); PHOSPHORUS 2.8 mg/dL (2.5-4.9); POTASSIUM 3.8 mmol/L (3.5-5.1); TOTAL PROTEIN, SERUM 7.4 g/dL (6.4-8.2)
[2017-09-06 07:58] VITALS: BP 154/77
--- NOTE | 2017-09-06 08:02 | NUR ---
MS RN NOTES PATIENT IN BED RESTING ALERT, ORIENTED X3. NO SOB OR ACUTE DISTRESS. EDGARD LIGHT WITHIN REACH. BED IN LOW LOCKED POSITION. WILL CONTINUE TO MONITOR.
[2017-09-06] MEDS: PIOGLITAZONE HCL 15 MG TABLET PO SCH (08:39)
[2017-09-06] MEDS: CLOPIDOGREL BISULFATE 75 MG TABLET PO SCH (08:39)
[2017-09-06] MEDS: ASPIRIN EC 81 MG TABLET.DR PO SCH (08:40)
[2017-09-06] MEDS: AMLODIPINE BESYLATE 10 MG TABLET PO SCH (08:40)
[2017-09-06] MEDS: Magnesium 1GM/D5W 100ML PREMIX 100 ML IV SCH ×2 (08:50→10:47)
[2017-09-06 09:40] LABS: LYMPHOCYTES % (MANUAL) 12 % (16-48); MONOCYTES % (MANUAL) 1 % (0-11.0); NEUTROPHILS % (MANUAL) 87 (42-76)
[2017-09-06] MEDS: MORPHINE SULFATE INJ 4 MG/ML DISP.SYRIN IV PRN ×2 (11:57→16:27)
--- NOTE | 2017-09-06 15:30 | NUR ---
MS RN NOTES REPOT GIVEN TO KEVIN RN AT [facility] , PATIENT BEING TRANSFERRED TO [facility] DUE TO NEED FOR HIGHER LEVEL OF CARE SPECIFICALLY ERCP. PATIENT INFORMED OF TRANSFER ALSO SISTER AT BEDSIDE.
[2017-09-06 16:00] VITALS: BP 160/81
--- NOTE | 2017-09-06 18:10 | NUR ---
MS RN NOTES PATIENT DISCHARGED TO [facility]. PATIENT ALERT, ORIENTED X3. PATIENT IN STABLE CONDITION. NO SOB OR ACUTE DISTRESS NOTED. PATIENT WITH PERIPHERAL IV WHICH WAS STARTED BEFORE COMMERCIAL PEST CONTROL TECHNICIAN ON RIGHT FOREARM G22 INTACT PATENT. ALL DUE MEDICATIONS ADMINISTERED. PATIENT BEING TRANSFERRED TO HIGHER LEVEL OF CARE DUE TO NEEDING ERCP. ALL BELONGINGS ACCOUNTED FOR. BELONGING LIST SIGNED. REPORT GIVEN TO EMT AT BEDSIDE. PATIENTS SON JOON NOTIFIED OF TRANSFER. PATIENT TRANSFERRED VIA AMBULANCE.
== END 2017-09-06 18:09 | disposition short-term general hospital (02) ==
LOC: ER 13:58 → MED 18:00
DX: K80.00 Calculus of gallbladder with acute cholecystitis without obstruction (principal); N17.0 Acute kidney failure with tubular necrosis; K83.0 Cholangitis; M32.9 Systemic lupus erythematosus, unspecified; I47.1 Supraventricular tachycardia; E86.0 Dehydration; I25.10 Atherosclerotic heart disease of native coronary artery without angina pectoris; I10 Essential (primary) hypertension; J44.9 Chronic obstructive pulmonary disease, unspecified; E78.5 Hyperlipidemia, unspecified; E11.9 Type 2 diabetes mellitus without complications; G89.4 Chronic pain syndrome; Z86.73 Personal history of transient ischemic attack (TIA), and cerebral infarction without residual deficits; F17.200 Nicotine dependence, unspecified, uncomplicated; Z79.4 Long term (current) use of insulin; Z79.82 Long term (current) use of aspirin; Z79.899 Other long term (current) drug therapy; F32.9 Major depressive disorder, single episode, unspecified; Z79.84 Long term (current) use of oral hypoglycemic drugs
CPT/HCPCS: 36415; 71045-TC; 74181-TC; 76705-TC; 78226; 80048-TC; 80053-TC; 80061-TC; 80074; 80076-TC; 81000-TC; 82962-TC; 83605-TC; 83690-TC; 83735-TC; 84100-TC; 84443-TC; 84484-TC; 84550-TC; 85025-TC; 85730-TC; 87040-TC; 87081-TC; 93926-TC; A4216; A4606; A9537; J2270; J2405; J2543; J3475; J7030; J7060; Z7610

== ENCOUNTER 2017-09-27 06:59 | Emergency (ER) | payer MEDICAID ==
[~2017-09-27] VITALS: Ht 152.4 cm; Wt 66.7 kg
[~2017-09-27 06:59] MED LIST changes: +AMLO10TA2 PO; -AMLO10TA6 PO; +IBUP-1955 PO; -METF-440 PO; +METF500T6 PO
--- NOTE | 2017-09-27 07:10 | NUR ---
Recieved patient to ed bed 10. Pt is complaining of weakness and poor apetite s/p gallbladder surgery 10 days ago. no pain. nad vss will cont to monitor
--- NOTE | 2017-09-27 07:12 | NUR ---
DR. CACERES AT BEDSIDE FOR EVALUATION.
[2017-09-27 08:02] LABS: BASOPHILS # (AUTO) 0.1 /CMM (0.0-0.2); BASOPHILS % (AUTO) 0.7 % (0.0-2.0); EOSINOPHILS % (AUTO) 2.5 % (0.0-6.0); HEMATOCRIT 26 % (33-45); HEMOGLOBIN 9.4 g/dL (11.5-14.8); LYMPHOCYTES # (AUTO) 2.2 /CMM (0.8-4.8); LYMPHOCYTES % (AUTO) 17.1 % (20.0-44.0); MEAN CORPUSCULAR HEMOGLOBIN 28 PG (26.0-33.0); MEAN CORPUSCULAR HGB CONC 36 g/dl (31.0-36.0); MEAN CORPUSCULAR VOLUME 78 fL (82-100); MONOCYTES # (AUTO) 0.7 /CMM (0.1-1.30); MONOCYTES % (AUTO) 5.3 % (2.0-12.0); NEUTROPHILS # (AUTO) 9.4 /CMM (1.8-8.9); NEUTROPHILS % (AUTO) 74.4 % (43.0-81.0); PLATELET COUNT (AUTO) 458 /CMM (150-450); RDW COEFFICIENT OF VARIATION 14.5 (11.5-15.0); RED BLOOD CELL COUNT(AUTO) 3.31 MIL/uL (4.0-5.2); WHITE BLOOD COUNT (AUTO) 12.7 K/uL (4.3-11.0)
[2017-09-27 08:04] LABS: BILIRUBIN,DIRECT 0.3 mg/dL (0.0-0.2); BILIRUBIN,TOTAL 0.5 mg/dL (0.2-1.0); CALCIUM, SERUM 9.4 mg/dL (8.5-10.1); CREATININE 2.2 mg/dL (0.6-1.3); POTASSIUM 4.3 mmol/L (3.5-5.1); TOTAL PROTEIN, SERUM 9.2 g/dL (6.4-8.2)
[2017-09-27 08:11] LABS: ALBUMIN 2.5 g/dL (3.4-5.0)
[2017-09-27 08:50] LABS: APPEARANCE,URINE Slightly Cloudy (CLEAR); BILIRUBIN,URINE Negative (NEGATIVE); BLOOD, URINE Negative Ery/uL (NEGATIVE); KETONES,URINE Trace (NEGATIVE); LEUKOCYTE ESTERASE ,URINE Negative (NEGATIVE); NITRITE, URINE Negative (NEGATIVE); PROTEIN,URINE >=300 mg/dl (NEGATIVE); UGLUCOSE Negative (NEGATIVE); UROBILINOGEN,URINE 0.2 EU/dL (0.2)
[2017-09-27 08:53] LABS: COLOR,URINE Dark Yellow (YELLOW)
--- NOTE | 2017-09-27 09:00 | NUR ---
CALLED PATIENT'S SON FOR BEAM MACHINE OPERATOR,. WILL BE HERE IN 15 MINS
[2017-09-27 09:02] LABS: BACTERIA,URINE Few /HPF (None Seen); RBC,URINE 0-3 /HPF (0-2); SQUAMOUS EPITHELIAL CELL,UR Moderate /HPF (None Seen)
[2017-09-27 09:06] VITALS: BP 156/83
--- NOTE | 2017-09-27 09:28 | NUR ---
Patient discharged to home in stable condition. Written and verbal after care instructions given. Patient verbalizes understanding of instruction.IV removed. Catheter intact and site benign. Pressure and 4x4 applied to site. No bleeding noted.
--- NOTE | 2017-09-27 09:32 | NUR ---
PATIENT N0T DISCHARGED FO DEMENTIA--WRONG PATIENT DOCUMENTATION. PATIENT WAS DISCHARGED FRO WOUND CHECK
== END 2017-09-27 09:37 | disposition home or self-care (01) ==
LOC: ER 06:59
DX: R63.0 Anorexia (principal); Z90.49 Acquired absence of other specified parts of digestive tract; F17.210 Nicotine dependence, cigarettes, uncomplicated; E11.9 Type 2 diabetes mellitus without complications; I10 Essential (primary) hypertension; J44.9 Chronic obstructive pulmonary disease, unspecified; F10.10 Alcohol abuse, uncomplicated; Y90.9 Presence of alcohol in blood, level not specified; Z79.82 Long term (current) use of aspirin; Z86.73 Personal history of transient ischemic attack (TIA), and cerebral infarction without residual deficits
CPT/HCPCS: 36415; 80048; 80076; 81001; 83690; 85025; 99284; A4606; Z7610; 81000-TC

== ENCOUNTER 2018-06-12 12:30 | Emergency (ER) | payer MEDICAID ==
[~2018-06-12] VITALS: Ht 154.9 cm; Wt 58.1 kg
[~2018-06-12 12:30] MED LIST changes: -AMLO10TA2 PO; +AMLO10TA7 PO; +HYDR-4354 PO; -HYDR-548 PO; +METF-440 PO; -METF500T6 PO
--- NOTE | 2018-06-12 13:00 | NUR ---
Patient presented to the ER c/o right foot and calf pain. On room air, breathing evenly and unlabored. Connected to the monitor and pulse ox. Kept comfortable. will continue to monitor accordingly.
--- NOTE | 2018-06-12 13:35 | NUR ---
computer laboratory technician at bedside for exam.
[2018-06-12 13:39] LABS: BASOPHILS % (AUTO) 0.5 % (0.0-2.0); EOSINOPHILS % (AUTO) 4.5 % (0.0-6.0); HEMATOCRIT 35 % (33-45); HEMOGLOBIN 11.4 g/dL (11.5-14.8); LYMPHOCYTES # (AUTO) 2.6 /CMM (0.8-4.8); LYMPHOCYTES % (AUTO) 48.4 % (20.0-44.0); MEAN CORPUSCULAR HGB CONC 33 g/dl (31.0-36.0); MEAN CORPUSCULAR VOLUME 82 fL (82-100); MONOCYTES # (AUTO) 0.4 /CMM (0.1-1.30); MONOCYTES % (AUTO) 7.2 % (2.0-12.0); NEUTROPHILS # (AUTO) 2.1 /CMM (1.8-8.9); NEUTROPHILS % (AUTO) 39.4 % (43.0-81.0); PLATELET COUNT (AUTO) 224 /CMM (150-450); RED BLOOD CELL COUNT(AUTO) 4.28 MIL/uL (4.0-5.2); WHITE BLOOD COUNT (AUTO) 5.3 K/uL (4.3-11.0)
[2018-06-12 13:49] LABS: CALCIUM, SERUM 9.3 mg/dL (8.5-10.1); CREATININE 2.2 mg/dL (0.6-1.3); POTASSIUM 4.9 mmol/L (3.5-5.1)
[2018-06-12 13:55] LABS: ALBUMIN 3.3 g/dL (3.4-5.0); BILIRUBIN,DIRECT 0.1 mg/dL (0.0-0.2); BILIRUBIN,TOTAL 0.1 mg/dL (0.2-1.0); TOTAL PROTEIN, SERUM 7.9 g/dL (6.4-8.2)
[2018-06-12] MEDS ORDERED: AMLODIPINE BESYLATE 5 MG TABLET PO ONE (14:30)
[2018-06-12] MEDS ORDERED: AMLODIPINE BESYLATE 5 MG TABLET ONE (14:31)
[2018-06-12] MEDS ORDERED: CLONIDINE HCL 0.1 MG TABLET ONE (16:14)
[2018-06-12] MEDS ORDERED: HYDROCODONE/APAP 5/325MG 1 EACH TABLET ONE (16:22)
[2018-06-12] MEDS ORDERED: CLONIDINE HCL 0.1 MG TABLET PO ONE (16:30)
[2018-06-12] MEDS ORDERED: HYDROCODONE/APAP 5/325MG 1 EACH TABLET PO ONE (16:30)
[2018-06-12 18:05] VITALS: BP 175/84
--- NOTE | 2018-06-12 18:06 | NUR ---
Patient discharged to home in stable condition. Written and verbal after care instructions given. Patient verbalizes understanding of instruction.
== END 2018-06-12 18:06 | disposition home or self-care (01) ==
LOC: ER 12:30
DX: I73.9 Peripheral vascular disease, unspecified (principal); I10 Essential (primary) hypertension; M79.671 Pain in right foot; M79.602 Pain in left arm; J44.9 Chronic obstructive pulmonary disease, unspecified; R74.8 Abnormal levels of other serum enzymes; N28.9 Disorder of kidney and ureter, unspecified; D64.9 Anemia, unspecified; E11.9 Type 2 diabetes mellitus without complications; E78.5 Hyperlipidemia, unspecified; G89.29 Other chronic pain; I25.10 Atherosclerotic heart disease of native coronary artery without angina pectoris; F10.10 Alcohol abuse, uncomplicated; F17.210 Nicotine dependence, cigarettes, uncomplicated; Y90.9 Presence of alcohol in blood, level not specified; Z91.19 Patient's noncompliance with other medical treatment and regimen; Z95.5 Presence of coronary angioplasty implant and graft; Z86.73 Personal history of transient ischemic attack (TIA), and cerebral infarction without residual deficits; Z79.82 Long term (current) use of aspirin
CPT/HCPCS: 36415; 71045-TC; 80048-TC; 80076-TC; 84484-TC; 85025-TC; 85730-TC; 93926-TC; 93971-TC

== ENCOUNTER 2019-04-17 12:51 | Emergency (ER) | payer MEDICAID ==
[~2019-04-17] VITALS: Ht 152.4 cm; Wt 59.0 kg
[~2019-04-17 12:51] MED LIST changes: -GLIM2TAB2 PO; +GLIM2TAB31 PO; +SIMV-46 PO; -SIMV20TA6 PO
--- NOTE | 2019-04-17 13:10 | NUR ---
PT CAME INTO THE ED C/O ABDOMINAL PAIN FOR A COUPLE OF DAYS. -NVD. PT AAOX4, BREATHING EVEN AND UNLABORED ON RA W/ NAD NOTED. PT CONENCTED TO THE MONITOR AND POX
[2019-04-17] MEDS ORDERED: IV NS 0.9% 500 ML BAG IV ONE (13:30)
[2019-04-17 13:37] LABS: BASOPHILS # (AUTO) 0.1 /CMM (0.0-0.2); EOSINOPHILS % (AUTO) 2.3 % (0.0-6.0); HEMATOCRIT 37 % (33-45); LYMPHOCYTES # (AUTO) 2.2 /CMM (0.8-4.8); LYMPHOCYTES % (AUTO) 37.4 % (20.0-44.0); MEAN CORPUSCULAR HGB CONC 32 g/dl (31.0-36.0); MEAN CORPUSCULAR VOLUME 82 fL (82-100); MONOCYTES # (AUTO) 0.4 /CMM (0.1-1.30); MONOCYTES % (AUTO) 6.5 % (2.0-12.0); NEUTROPHILS # (AUTO) 3.1 /CMM (1.8-8.9); NEUTROPHILS % (AUTO) 52.8 % (43.0-81.0); PLATELET COUNT (AUTO) 242 /CMM (150-450); RED BLOOD CELL COUNT(AUTO) 4.54 MIL/uL (4.0-5.2); WHITE BLOOD COUNT (AUTO) 5.8 K/uL (4.3-11.0)
--- NOTE | 2019-04-17 13:41 | NUR ---
PT TAKEN TO CT
[2019-04-17 13:43] LABS: CALCIUM, SERUM 9.5 mg/dL (8.5-10.1); CARBON DIOXIDE 27 mmol/L (21-32); CHLORIDE 106 mmol/L (98-107); GLUCOSE 113 mg/dL (74-106); SODIUM SERUM 143 mmol/L (136-145); UREA NITROGEN, BLOOD 29 mg/dL (7-18)
[2019-04-17 13:49] LABS: ALANINE AMINOTRANSFERASE 36 U/L (12-78); ALBUMIN 3.2 g/dL (3.4-5.0); ALKALINE PHOSPHATASE 237 U/L (46-116); ASPARTATE AMINOTRANSFERASE 25 U/L (15-37); BILIRUBIN,DIRECT 0.1 mg/dL (0.0-0.2); BILIRUBIN,TOTAL 0.3 mg/dL (0.2-1.0); LIPASE 275 U/L (73-393); TOTAL PROTEIN, SERUM 8.1 g/dL (6.4-8.2)
--- NOTE | 2019-04-17 14:00 | NUR ---
PT BACK FROM CT
[2019-04-17] MEDS ORDERED: ONDANSETRON HCL/PF 4 MG/2 ML VIAL ONE (14:56)
[2019-04-17] MEDS ORDERED: MORPHINE SULFATE INJ 2 MG/ML DISP.SYRIN ONE (14:56)
[2019-04-17] MEDS ORDERED: MORPHINE SULFATE INJ 2 MG/ML DISP.SYRIN IV ONE (15:00)
[2019-04-17] MEDS ORDERED: ONDANSETRON HCL/PF - ER 4 MG/2 ML VIAL IV ONE (15:00)
[2019-04-17 15:18] LABS: APPEARANCE,URINE Clear (CLEAR); BILIRUBIN,URINE Negative (NEGATIVE); BLOOD, URINE Negative Ery/uL (NEGATIVE); COLOR,URINE Yellow (YELLOW); KETONES,URINE Negative (NEGATIVE); LEUKOCYTE ESTERASE ,URINE Negative (NEGATIVE); NITRITE, URINE Negative (NEGATIVE); PH,URINE 6.5 (5.0-8.0); PROTEIN,URINE >=300 mg/dl (NEGATIVE); UGLUCOSE Negative (NEGATIVE); UROBILINOGEN,URINE 0.2 EU/dL (0.2)
[2019-04-17] MEDS ORDERED: LEVA15HF4 IH (15:59)
[2019-04-17] MEDS ORDERED: AMLO10TA7 PO (15:59)
[2019-04-17] MEDS ORDERED: METF500T20 PO (15:59)
[2019-04-17] MEDS ORDERED: hydrALAZINE HCL IV 20 MG VIAL ONE (15:59)
[2019-04-17] MEDS ORDERED: hydrALAZINE HCL IV 20 MG VIAL IV ONE (16:00)
--- NOTE | 2019-04-17 16:11 | NUR ---
MELCHOR (PATIENT'S DAUGHTER IN LAW) # : [phone]
[2019-04-17 17:00] VITALS: BP 148/97
== END 2019-04-17 17:01 | disposition home or self-care (01) ==
LOC: ER 12:52
DX: K80.50 Calculus of bile duct without cholangitis or cholecystitis without obstruction (principal); E11.22 Type 2 diabetes mellitus with diabetic chronic kidney disease; I12.9 Hypertensive chronic kidney disease with stage 1 through stage 4 chronic kidney disease, or unspecified chronic kidney disease; N18.9 Chronic kidney disease, unspecified; F17.200 Nicotine dependence, unspecified, uncomplicated; I25.10 Atherosclerotic heart disease of native coronary artery without angina pectoris; J44.9 Chronic obstructive pulmonary disease, unspecified; G89.4 Chronic pain syndrome; M32.9 Systemic lupus erythematosus, unspecified; Z90.49 Acquired absence of other specified parts of digestive tract; Z90.710 Acquired absence of both cervix and uterus; Z86.73 Personal history of transient ischemic attack (TIA), and cerebral infarction without residual deficits; Z79.899 Other long term (current) drug therapy; Z79.84 Long term (current) use of oral hypoglycemic drugs; Z79.4 Long term (current) use of insulin; Z79.82 Long term (current) use of aspirin
CPT/HCPCS: 36415; 74176; 80048; 80076; 81001; 82962; 83690; 84484; 85025; 96374; 96375; 99284; 99406; J0360; J2270; J2405 ×2; J7040; 81000-TC

== ENCOUNTER 2019-04-18 13:06 | Emergency (ER) | payer MEDICAID ==
[~2019-04-18] VITALS: Ht 152.4 cm; Wt 59.0 kg
[~2019-04-18 13:06] MED LIST changes: +LEVA15HF4 IH; +METF500T20 PO
--- NOTE | 2019-04-18 13:10 | NUR ---
came back due to worsening abdominal pain, seen here yesterday for biliary colic. Patient a/ox4, breathing even and unlabored, no sob noted, needs attended, kept comfortable. Changed into gown, attached to the monitor worker.
[2019-04-18] MEDS ORDERED: MORPHINE SULFATE INJ 4 MG/ML DISP.SYRIN ONE ×2 (13:40→18:07)
[2019-04-18] MEDS ORDERED: ONDANSETRON HCL/PF 4 MG/2 ML VIAL ONE (13:40)
[2019-04-18 13:56] LABS: BASOPHILS % (AUTO) 0.9 % (0.0-2.0); EOSINOPHILS % (AUTO) 2.2 % (0.0-6.0); HEMATOCRIT 37 % (33-45); HEMOGLOBIN 11.8 g/dL (11.5-14.8); LYMPHOCYTES # (AUTO) 1.5 /CMM (0.8-4.8); LYMPHOCYTES % (AUTO) 32.5 % (20.0-44.0); MEAN CORPUSCULAR HGB CONC 32 g/dl (31.0-36.0); MEAN CORPUSCULAR VOLUME 82 fL (82-100); MONOCYTES # (AUTO) 0.3 /CMM (0.1-1.30); MONOCYTES % (AUTO) 6.9 % (2.0-12.0); NEUTROPHILS # (AUTO) 2.7 /CMM (1.8-8.9); NEUTROPHILS % (AUTO) 57.5 % (43.0-81.0); PLATELET COUNT (AUTO) 231 /CMM (150-450); WHITE BLOOD COUNT (AUTO) 4.7 K/uL (4.3-11.0)
[2019-04-18] MEDS ORDERED: IV NS 0.9% 1,000 ML BAG IV ONE (14:00)
[2019-04-18] MEDS ORDERED: MORPHINE SULFATE INJ 2 MG/ML DISP.SYRIN IV ONE ×2 (14:00→18:00)
[2019-04-18] MEDS ORDERED: ONDANSETRON HCL/PF 4 MG/2 ML VIAL IVP ONE (14:00)
[2019-04-18 14:03] LABS: CALCIUM, SERUM 9.1 mg/dL (8.5-10.1); CREATININE 2.2 mg/dL (0.6-1.3)
[2019-04-18 14:09] LABS: ALBUMIN 3.1 g/dL (3.4-5.0); BILIRUBIN,DIRECT 0.1 mg/dL (0.0-0.2); BILIRUBIN,TOTAL 0.3 mg/dL (0.2-1.0); TOTAL PROTEIN, SERUM 7.7 g/dL (6.4-8.2)
--- NOTE | 2019-04-18 15:10 | NUR ---
CALLED [employer] [facility], LEFT VOICEMAIL FOR INPATIENT TRANSFER REQUEST
--- NOTE | 2019-04-18 15:22 | NUR ---
PER ADMITTING PT CAPITATED TO [facility], AWAITING CALL FROM CM
--- NOTE | 2019-04-18 15:29 | NUR ---
AWAITING CALL FROM MD LÓPEZ AT [facility] FOR DR EDDY
--- NOTE | 2019-04-18 15:33 | NUR ---
THADDEUS [phone]
--- NOTE | 2019-04-18 16:10 | NUR ---
PATIENT ACCEPTED [facility], INFORMED MS ROCHE, DAUGHTER.
--- NOTE | 2019-04-18 16:15 | NUR ---
TRANSFER INFO: PT WILL GO TO [facility], DIRECT ADMIT TO ROOM 120-A, ACCEPTED BY DR LÓPEZ. EDUARDO ARIAS(NURSING SUP) FOR REPORT [phone], [facility] ETA 8508 TRIP#[id number]
--- NOTE | 2019-04-18 16:58 | NUR ---
Patient is resting comfortably in bed with eyes closed. Easily aroused. VSS
--- NOTE | 2019-04-18 18:00 | NUR ---
UPDATED ETA 184
--- NOTE | 2019-04-18 18:05 | NUR ---
report given to HU[facility] nursing rig supervisor, bed assigned to room 208C.
[2019-04-18 19:25] VITALS: BP 159/91
--- NOTE | 2019-04-18 20:28 | NUR ---
REPORT GIVEN TO [facility]ORT TEAM FOR GUANAKO. AND TRANSFER RESPONSIBILITIES.
== END 2019-04-18 20:29 | disposition home or self-care (01) ==
LOC: ER 13:06
DX: K80.50 Calculus of bile duct without cholangitis or cholecystitis without obstruction (principal); M32.9 Systemic lupus erythematosus, unspecified; E11.22 Type 2 diabetes mellitus with diabetic chronic kidney disease; I12.9 Hypertensive chronic kidney disease with stage 1 through stage 4 chronic kidney disease, or unspecified chronic kidney disease; N18.9 Chronic kidney disease, unspecified; I25.10 Atherosclerotic heart disease of native coronary artery without angina pectoris; J44.9 Chronic obstructive pulmonary disease, unspecified; F17.210 Nicotine dependence, cigarettes, uncomplicated; G89.4 Chronic pain syndrome; Z90.49 Acquired absence of other specified parts of digestive tract; Z79.899 Other long term (current) drug therapy; Z79.84 Long term (current) use of oral hypoglycemic drugs; Z79.4 Long term (current) use of insulin; Z79.82 Long term (current) use of aspirin
CPT/HCPCS: 36415; 80048; 80076; 83690; 85025; 85730; 96374; 96375; 96376; 99283; J2270 ×2; J2405; J7030